=== PATIENT | male | born 1975 | race Caucasian/White ===

== ENCOUNTER 2017-06-29 12:28 | Day surgery (SDC) | payer BC ==
[2017-06-28 12:16] VITALS: BMI 24.6
[2017-06-29] MEDS ORDERED: CEFAZOLIN/Water 2 GM/20 ML SYRINGE ONE (13:12)
[2017-06-29] MEDS ORDERED: Sodium Chloride 0.9% 10 ML ONE (13:53)
[2017-06-29] MEDS ORDERED: Bacitracin Zinc Ointment 30 gm TUBE ONE (13:53)
[2017-06-29] MEDS ORDERED: Bupivacaine PF 0.5% 30 ML VIAL ONE (13:53)
[2017-06-29] MEDS ORDERED: Fentanyl 100 MCG/2 ML VIAL ONE (14:28)
[2017-06-29] MEDS ORDERED: Lidocaine 1% PF 5 ML VIAL ONE (14:56)
[2017-06-29] MEDS ORDERED: Propofol 500 MG/50 ML VIAL ONE (15:19)
[2017-06-29] MEDS ORDERED: Ketorolac Tromethamine 30 MG/ML VIAL ONE (16:23)
--- NOTE | 2017-06-29 20:11 | RAD ---
LEFT FINGER THREE VIEWS: 06/29/17 HISTORY: 42-year-old male status post ORIF of what appears to be the fourth finger. Two Toan wires are noted stabilizing a corner type fracture of the dorsal aspect of the base of the distal phalanx. Prior radiographs are not available for comparison. No significant malalignment. IMPRESSION: Two Toan wires stabilizing a fracture through the dorsal base of the distal phalanx of the four th finger. POS: [facility]
--- NOTE | 2017-06-30 06:41 | OP ---
DATE OF PROCEDURE: 06/29/2017 PREOPERATIVE DIAGNOSES: 1. Displaced mallet fracture, distal phalanx intraarticular fracture, dorsal displacement, 40% ruslan cular surface involvement. 2. Subluxed palmarly distal phalangeal. PROCEDURE PERFORMED: 1. Closed reduction with pinning, distant phalangeal joint to prevent sagittal plane subluxation. 2. Closed reduction with pinning x1 K-wire 0.35 in oblique technique, intra-articular fracture of d istal phalanx. This is all at the left ring finger. INDICATION: The patient now has a 9-day old fracture. Initially had good position, but when he cam e to clinic, the splint had loosened. Two days ago, we tried to achieve further reduction, could no t as the joint became more subluxed. SURGEON: Kulwant Galvez MD MIRROR SPECIALIST: Leo Edouard CRNA. ANESTHESIA: General via propofol method augmented with about 8 mL 0.5% Marcaine block metacarpophal angeal joint level. INDICATIONS: Already failed conservative treatment to include reduction x2 with loss of reduction o ne week later and they could not maintain or return to it. DESCRIPTION OF PROCEDURE: After successful general LMA technique, the limb was prepped and under pr opofol block with the block was augmented, the patient had a prescrub performed because he had a spl int on the dorsum of the hand and then we scrubbed his hand, prepped and draped with Betadine. We t hen brought the C-arm to the field, achieved, nearly closed with complete anatomic reduction u sing just the fingers on the surgeon's left hand, so with the PIP and DIP in a prone position, we pa ssed a guidewire down the sagittal plane central portion and was slightly radial to midline to allow for pinning. We then had an anatomical reduction with no step-off at the joint. With this, we pas sed one 3.5 5K wire obliquely in order to miss the K-wire going across the joint to hold it in an ap propriately reduced position. Now, the fracture was nearly anatomic, but it was definitely anatomic at the joint line, so we felt that another K-wire might cause fracture, so we did not pass it. The patient had the wires cut, 0.45 at the joint, 0.35 at the fracture below the skin were not protr uding. Bacitracin, Adaptic, 4 x 4 bulky dressing, Coby, followed by a Coban was applied. Then, finally a metal finger splint poly with the MP joint at three PIP joint at -30 degrees of flexion and DIP hype rextended.
== END 2017-06-29 17:29 | disposition home or self-care (01) ==
LOC: SDC 12:28
PROVIDERS: ATTEND Orthopaedic Surgery Hand Surgery
PROC: 0PSV34Z Reposition Left Finger Phalanx with Internal Fixation Device, Percutaneous Approach (ICD-10-PCS; principal; 2017-06-29)
DX: S62.635A Displaced fracture of distal phalanx of left ring finger, initial encounter for closed fracture (principal); S63.245A Subluxation of distal interphalangeal joint of left ring finger, initial encounter; I25.10 Atherosclerotic heart disease of native coronary artery without angina pectoris; J45.909 Unspecified asthma, uncomplicated; Z79.82 Long term (current) use of aspirin; Z79.899 Other long term (current) drug therapy
CPT/HCPCS: 76001; A4216; J1885; J2001; J2704; J3010; J3490; Q4049; S0020